=== PATIENT | male | born 1985 | race Caucasian/White ===

== ENCOUNTER 2017-04-17 20:31 | Emergency (ER) | payer BC ==
[2017-04-17 20:51] VITALS: BP 145/89
--- NOTE | 2017-04-17 20:58 | ED ---
Upper Extremity Pain - HPI Summary HPI Summary: 32 YEAR OLD MALE PRESENTS WITH SEVERE RIGHT SHOULDER/CLAVICLE SECONDARY TO SOMEONE FALLING ON HIM. - History of Current Complaint Chief Complaint: UCTrauma Stated Complaint: SHOULDER INJURY Time Seen by Provider: 04/17/17 20:57 Hx Obtained From: Patient Mechanism Of Injury: Blunt Trauma, Direct Blow Onset/Duration: Started Hours Ago Timing: Constant Severity Initially: Moderate Severity Currently: Moderate Pain Location: Collar - Allergies/Home Medications Allergies/Adverse Reactions: Allergies Allergy/AdvReac Type Severity Reaction Status Date / Time No Known Allergies Allergy Verified 04/17/17 20:51 PMH/Surg Hx/FS Hx/Imm Hx Previously Healthy: Yes Infectious Disease History: No Infectious Disease History: Denies: Traveled Outside the [place] in Last 30 Days - Social History Alcohol Use: Weekly Substance Use Type: Reports: Marijuana Smoking Status (MU): Never Smoked Tobacco Review of Systems Constitutional: Negative Eyes: Negative ENT: Negative Cardiovascular: Negative Respiratory: Negative Gastrointestinal: Negative Genitourinary: Negative Positive: Decreased ROM, Other - RIGHT SHOULDER Skin: Negative All Other Systems Reviewed And Are Negative: Yes Physical Exam Triage Information Reviewed: Yes Vital Signs On Initial Exam: Initial Vitals Temp Pulse Resp BP Pulse Ox 36.7 C 70 18 145/89 98 04/17/17 20:44 04/17/17 20:44 04/17/17 20:44 04/17/17 20:44 04/17/17 20:44 Vital Signs Reviewed: Yes Appearance: Positive: Pain Distress Skin: Positive: Warm Head/Face: Positive: Normal Head/Face Inspection Eyes: Positive: Normal ENT: Positive: Normal ENT inspection Neck: Positive: Supple Respiratory/Lung Sounds: Positive: Clear to Auscultation Cardiovascular: Positive: Normal Abdomen Description: Positive: Nontender Musculoskeletal: Positive: Other - RIGHT SHOULDER PAIN Neurological: Positive: Normal Psychiatric: Positive: Normal Diagnostics - Vital Signs Vital Signs Temp Pulse Resp BP Pulse Ox 04/17/17 20:44 36.7 C 70 18 145/89 98 - Laboratory Lab Statement: Any lab studies that have been ordered have been reviewed, and results considered in the medical decision making process. Course/Dx - Diagnoses Provider Diagnoses: Clavicle fracture Discharge - Discharge Plan Condition: Stable Disposition: HOME Prescriptions: Acetaminop/Codeine 30 MG TAB* [Tylenol/Codeine 30 MG TAB*] 1 tab PO Q8H PRN #9 tab MDD 3 PRN Reason: Pain Ibuprofen TAB* [Motrin TAB* 800 MG] 800 mg PO Q6H #30 tab Methocarbamol TAB* [Robaxin 500 MG TAB*] 500 mg PO TID PRN #30 tab PRN Reason: Spasms - Back Patient Education Materials: Clavicle Fracture (ED), Shoulder Sprain (ED), Ice Pack Application (ED) Referrals: Bree Osuna MD [Medical Doctor] -
[2017-04-17] MEDS ORDERED: Ibuprofen TAB* 400 MG PO ONE (21:34)
[2017-04-17] MEDS ORDERED: Acetaminop/Codeine 30 MG TAB* 1 TAB (300 MG/30 MG) PO ONE (21:34)
--- NOTE | 2017-04-17 21:44 | RAD ---
HISTORY: Blunt trauma to right shoulder COMPARISONS: None VIEWS: 6, Frontal internal rotation, external rotation, outlet, and axillary views with frontal and frontal oblique views of the clavicles. FINDINGS: BONE DENSITY: Normal. BONES: There is a displaced overriding fracture of the mid clavicle on the right, overriding by approximately 3.6 cm. JOINTS: There is no arthropathy. ALIGNMENT: There is no dislocation. SOFT TISSUES: Unremarkable. OTHER FINDINGS: None. IMPRESSION: OVERRIDING FRACTURE OF THE RIGHT MID CLAVICLE.
== END 2017-04-17 21:50 | disposition home or self-care (01) ==
LOC: UCEAST 20:31
DX: S42.001A Fracture of unspecified part of right clavicle, initial encounter for closed fracture (principal); W50.0XXA Accidental hit or strike by another person, initial encounter; Y93.9 Activity, unspecified; Y92.9 Unspecified place or not applicable; F12.90 Cannabis use, unspecified, uncomplicated
CPT/HCPCS: 73050; 99202; A9270-GY; G0463